=== PATIENT | female | born 1955 | race Hispanic/Latino ===

== ENCOUNTER 2020-02-17 10:28 | Inpatient (IN) | payer OTHER ==
[~2020-02-17] VITALS: Ht 157.5 cm; Wt 72.6 kg
[~2020-02-17 10:28] MED LIST: ASPIRIN325 MG PO; ECOTRIN81 MG PO; LOPRESSOR25 MG PO; MELOXICAM7.5 MG PO; PEPCID20 MG PO; SIMVASTATIN20 MG PO
[2020-02-17] MEDS ORDERED: SODIUM CHLORIDE 0.9% 1000ML 1,000 ML IV STA (10:50)
[2020-02-17] MEDS ORDERED: ONDANSETRON HCL INJ 2MG/ML 2ML 2 MG/ML VIAL IV STA (11:59)
[2020-02-17 12:09] LABS: BASOPHILS # (AUTO) 0.1 (0.0-0.1); BASOPHILS % 0.5 % (0.0-1.0); EOSINOPHILS # (AUTO) 0.1 (0.0-0.4); EOSINOPHILS % 0.6 % (0.0-6.0); HEMATOCRIT 42.8 % (34.2-44.1); HEMOGLOBIN 13.9 g/dL (12.0-16.0); LYMPHOCYTES # (AUTO) 2.4 (1.0-3.2); LYMPHOCYTES % 22.4 % (18.0-39.1); MEAN CORPUSCULAR HEMOGLOBIN 29.4 pg (28-32); MEAN CORPUSCULAR HGB CONC 32.5 g/dL (31-35); MEAN CORPUSCULAR VOLUME 90.5 fL (81-99); MONOCYTES # (AUTO) 0.6 (0.2-0.8); MONOCYTES % 5.6 % (4.4-11.3); NEUTROPHILS # (AUTO) 7.7 (2.1-6.9); NEUTROPHILS % 70.3 % (38.7-80.0); PLATELET COUNT 312 x10e3/uL (140-360); RED BLOOD COUNT 4.73 x10e6/uL (3.6-5.1)
[2020-02-17 12:22] LABS: INR 0.93; PARTIAL THROMBOPLASTIN TIME 25.8 seconds (23.8-35.5); PROTHROMBIN TIME 12.9 seconds (11.9-14.5)
[2020-02-17 12:30] LABS: ALANINE AMINOTRANSFERASE 28 IU/L (0-55); ALBUMIN 4.6 g/dL (3.5-5.0); ALBUMIN/GLOBULIN RATIO 1.4 (0.8-2.0); ALKALINE PHOSPHATASE 80 IU/L (40-150); ANION GAP 14.4 mmol/L (8-16); BLOOD UREA NITROGEN 14 mg/dL (7-26); BUN/CREATININE RATIO 17 (6-25); CALCIUM 9.1 mg/dL (8.4-10.2); CARBON DIOXIDE 26 mmol/L (22-29); CHLORIDE 105 mmol/L (98-107); CREATINE KINASE 262 IU/L (29-168); CREATININE, SERUM 0.81 mg/dL (0.57-1.11); EST GLOMERULAR FILTRATION RATE > 60 ML/MIN (60-); GLUCOSE 100 mg/dL (74-118); POTASSIUM 4.4 mmol/L (3.5-5.1); SODIUM 141 mmol/L (136-145)
[2020-02-17 17:00] VITALS: BP 140/85
[2020-02-17 18:01] VITALS: BP 131/79
[2020-02-17] MEDS ORDERED: GABAPENTIN300 MG PO (18:33)
[2020-02-17] MEDS ORDERED: REQUIP3 MG PO (18:33)
[2020-02-17] MEDS ORDERED: NAPROXEN250 MG PO (18:33)
[2020-02-17] MEDS ORDERED: VITAMIN D250 MC1 PO (18:33)
[2020-02-17] MEDS ORDERED: HYDROXYCHLOROQ200 MG (18:33)
[2020-02-17] MEDS ORDERED: PANTOPRAZOLE SO40 MG PO (18:33)
[2020-02-17] MEDS ORDERED: CYMBALTA30 MG PO (18:33)
[2020-02-17 18:53] LABS: CREATINE KINASE MB 9.8 ng/mL (0-5.0)
[2020-02-17 20:37] VITALS: BP 125/60
[2020-02-17 21:00] VITALS: BP 125/60
[2020-02-17] MEDS: GABAPENTIN 300 MG CAP PO SCH (21:01)
[2020-02-17] MEDS: ROPINIROLE HCL 2 MG TAB PO SCH (21:01)
[2020-02-17] MEDS: MORPHINE SULFATE INJ 4 MG/ML INJ 1ML IV PRN (21:02)
[2020-02-17] MEDS: ONDANSETRON HCL INJ 2MG/ML 2ML 2 MG/ML VIAL IV PRN (21:02)
[2020-02-18] VITALS (7 sets, daily range): BP systolic 99–124; BP diastolic 58–79
[2020-02-18] MEDS: MORPHINE SULFATE INJ 4 MG/ML INJ 1ML IV PRN ×5 (01:30→21:48)
[2020-02-18] MEDS: ONDANSETRON HCL INJ 2MG/ML 2ML 2 MG/ML VIAL IV PRN ×3 (01:30→13:57)
[2020-02-18 07:07] LABS: BASOPHILS # (AUTO) 0.1 (0.0-0.1); BASOPHILS % 0.4 % (0.0-1.0); EOSINOPHILS # (AUTO) 0.1 (0.0-0.4); EOSINOPHILS % 0.9 % (0.0-6.0); HEMATOCRIT 37.9 % (34.2-44.1); HEMOGLOBIN 12.4 g/dL (12.0-16.0); LYMPHOCYTES # (AUTO) 3.1 (1.0-3.2); LYMPHOCYTES % 23.8 % (18.0-39.1); MEAN CORPUSCULAR HEMOGLOBIN 30.8 pg (28-32); MEAN CORPUSCULAR HGB CONC 32.7 g/dL (31-35); MEAN CORPUSCULAR VOLUME 94.3 fL (81-99); MONOCYTES % 7.6 % (4.4-11.3); NEUTROPHILS # (AUTO) 8.6 (2.1-6.9); PLATELET COUNT 254 x10e3/uL (140-360); RED BLOOD COUNT 4.02 x10e6/uL (3.6-5.1); RED CELL DISTRIBUTION WIDTH 13.3 % (11.7-14.4)
[2020-02-18 07:35] LABS: ALANINE AMINOTRANSFERASE 63 IU/L (0-55); ALBUMIN 4.2 g/dL (3.5-5.0); ALBUMIN/GLOBULIN RATIO 1.4 (0.8-2.0); ALKALINE PHOSPHATASE 93 IU/L (40-150); ANION GAP 14.8 mmol/L (8-16); BLOOD UREA NITROGEN 15 mg/dL (7-26); BUN/CREATININE RATIO 19 (6-25); CALCIUM 8.7 mg/dL (8.4-10.2); CARBON DIOXIDE 25 mmol/L (22-29); CHLORIDE 103 mmol/L (98-107); CHOL/HDL RATIO 2.3 (3.0-3.6); CHOLESTEROL 179 MD/DL (0-199); CREATINE KINASE 333 IU/L (29-168); CREATININE, SERUM 0.79 mg/dL (0.57-1.11); EST GLOMERULAR FILTRATION RATE > 60 ML/MIN (60-); GLUCOSE 165 mg/dL (74-118); HDL CHOLESTEROL 77 MG/DL (40-60); LDL CHOLESTEROL 82 MG/DL (60-130); POTASSIUM 3.8 mmol/L (3.5-5.1); SODIUM 139 mmol/L (136-145); TRIGLYCERIDES 99 MG/DL (0-149)
[2020-02-18 07:43] LABS: THYROID STIMULATING HORMONE 1.759 uIU/mL (0.350-4.940)
[2020-02-18] MEDS: GABAPENTIN 300 MG CAP PO SCH ×3 (09:00→21:31)
[2020-02-18] MEDS: PANTOPRAZOLE SOD 40 MG TABEC PO SCH ×2 (09:00→17:00)
[2020-02-18] MEDS: DULOXETINE HCL 30 MG DELAYED RELEASE PO SCH (09:00)
[2020-02-18] MEDS: HYDROXYCHLOROQUINE SULFATE 200 MG TAB PO SCH (11:30)
[2020-02-18] MEDS: SODIUM CHLORIDE 0.9% 1000ML 1,000 ML IV SCH ×2 (12:06→21:31)
[2020-02-18] MEDS ORDERED: PROMETHAZINE 12.5MG/ NACL 0.9% 12.5 MG/50 ML BAG IV PRN (14:15)
[2020-02-18] MEDS ORDERED: ONDANSETRON HCL INJ 2MG/ML 2ML 2 MG/ML VIAL IV PRN (14:30)
[2020-02-18] MEDS: METOCLOPRAMIDE HCL 10 MG/2ML VIAL IV SCH ×3 (15:18→23:13)
[2020-02-18] MEDS: ROPINIROLE HCL 2 MG TAB PO SCH (21:31)
[2020-02-19] VITALS (7 sets, daily range): BP systolic 100–135; BP diastolic 60–98
[2020-02-19] MEDS: PANTOPRAZOLE 40 MG 10ML VIAL IV SCH ×2 (03:23→15:29)
[2020-02-19] MEDS: METOCLOPRAMIDE HCL 10 MG/2ML VIAL IV SCH ×4 (06:15→23:44)
[2020-02-19] MEDS: DULOXETINE HCL 30 MG DELAYED RELEASE PO SCH (09:17)
[2020-02-19] MEDS: GABAPENTIN 300 MG CAP PO SCH ×3 (09:18→20:52)
[2020-02-19] MEDS: SODIUM CHLORIDE 0.9% 1000ML 1,000 ML IV SCH ×2 (09:18→20:52)
[2020-02-19] MEDS: HYDROXYCHLOROQUINE SULFATE 200 MG TAB PO SCH (12:15)
[2020-02-19] MEDS: ROPINIROLE HCL 2 MG TAB PO SCH (20:52)
[2020-02-20 00:29] VITALS: BP 114/56
[2020-02-20] MEDS: PANTOPRAZOLE 40 MG 10ML VIAL IV SCH ×2 (02:59→15:10)
[2020-02-20] MEDS: SODIUM CHLORIDE 0.9% 1000ML 1,000 ML IV SCH ×2 (02:59→12:30)
[2020-02-20 04:15] VITALS: BP 110/58
[2020-02-20] MEDS: METOCLOPRAMIDE HCL 10 MG/2ML VIAL IV SCH ×3 (05:52→17:25)
[2020-02-20 08:34] VITALS: BP 133/64
[2020-02-20] MEDS: GABAPENTIN 300 MG CAP PO SCH ×2 (09:00→13:57)
[2020-02-20 12:00] VITALS: BP 121/69
[2020-02-20] MEDS ORDERED: LIDOCAINE HCL 2% LOCAL INJ 5 ML SDV VIAL INJ ONE (12:04)
[2020-02-20] MEDS ORDERED: PROPOFOL IV EMULSION 10 MG/ML 20 ML VIAL ONE (12:04)
[2020-02-20] MEDS ORDERED: FENTANYL CITRATE/PF 100MCG/2 ML INJ ONE (12:34)
[2020-02-20] MEDS ORDERED: MIDAZOLAM HCL 2 MG/2 ML VIAL ONE (12:34)
[2020-02-20] MEDS: DULOXETINE HCL 30 MG DELAYED RELEASE PO SCH (13:57)
[2020-02-20] MEDS: HYDROXYCHLOROQUINE SULFATE 200 MG TAB PO SCH (13:57)
[2020-02-20] MEDS ORDERED: VANCOMYCIN 1GM/NS 250 ML 250 ML ONE (15:25)
[2020-02-20 16:00] VITALS: BP 121/90
[2020-02-20] MEDS ORDERED: LIDOCAINE 1% W/EPINEPHRINE 20 ML VIAL ONE (16:37)
[2020-02-20 20:00] VITALS: BP 147/79
== END 2020-02-20 21:33 | disposition home or self-care (01) | DRG 262 ==
LOC: ER 11:25 → ERHOLD 13:10 → MED/SURG2 17:05 → OBSVTOIN 02-20 09:37
PROVIDERS: ADMIT Internal Medicine; ATTEND Internal Medicine
PROC: 0JH632Z Insertion of Monitoring Device into Chest Subcutaneous Tissue and Fascia, Percutaneous Approach (ICD-10-PCS; 2020-02-20)
PROC: 0D758ZZ Dilation of Esophagus, Via Natural or Artificial Opening Endoscopic (ICD-10-PCS; principal; 2020-02-20 12:28)
PROC: 0DB68ZX Excision of Stomach, Via Natural or Artificial Opening Endoscopic, Diagnostic (ICD-10-PCS; 2020-02-20 12:28)
DX: R55 Syncope and collapse (principal); W18.39XA Other fall on same level, initial encounter; Y93.01 Activity, walking, marching and hiking; Y92.89 Other specified places as the place of occurrence of the external cause; M35.00 Sjogren syndrome, unspecified; G25.81 Restless legs syndrome; M32.9 Systemic lupus erythematosus, unspecified; Z90.49 Acquired absence of other specified parts of digestive tract; Z88.0 Allergy status to penicillin; K20.9 Esophagitis, unspecified; K44.9 Diaphragmatic hernia without obstruction or gangrene; K29.70 Gastritis, unspecified, without bleeding; K31.7 Polyp of stomach and duodenum; M79.7 Fibromyalgia; Z11.59 Encounter for screening for other viral diseases
CPT/HCPCS: 33285; 36415; 43239; 43450; 70450; 70551; 71045; 72125; 80053; 80061; 82550; 82553; 83880; 84443; 84484; 85025; 85610; 85730; 88305; 88312; 93005; 93306; 93880; 96361; 99284; C1764; G0378; J2001; J2250; J2270; J2405; J2765; J3010; J3370; J7030; U0002

== ENCOUNTER 2021-02-17 20:31 | Inpatient (IN) | payer OTHER ==
[~2021-02-17] VITALS: Ht 160 cm; Wt 69.4 kg
[~2021-02-17 20:31] MED LIST changes: +CYMBALTA30 MG PO; +GABAPENTIN300 MG PO; +HYDROXYCHLOROQ200 MG; +NAPROXEN250 MG PO; +PANTOPRAZOLE SO40 MG PO; +REQUIP3 MG PO; +VITAMIN D250 MC1 PO
[2021-02-17 20:49] LABS: BASOPHILS % 0.4 % (0.0-1.0); EOSINOPHILS # (AUTO) 0.3 (0.0-0.4); EOSINOPHILS % 2.5 % (0.0-6.0); HEMATOCRIT 36.3 % (34.2-44.1); HEMOGLOBIN 11.6 g/dL (12.0-16.0); LYMPHOCYTES # (AUTO) 2.6 (1.0-3.2); LYMPHOCYTES % 26.4 % (18.0-39.1); MEAN CORPUSCULAR HEMOGLOBIN 28.9 pg (28-32); MEAN CORPUSCULAR VOLUME 90.5 fL (81-99); MONOCYTES # (AUTO) 0.7 (0.2-0.8); MONOCYTES % 6.9 % (4.4-11.3); NEUTROPHILS # (AUTO) 6.3 (2.1-6.9); NEUTROPHILS % 63.5 % (38.7-80.0); PLATELET COUNT 329 x10e3/uL (140-360); RED BLOOD COUNT 4.01 x10e6/uL (3.6-5.1)
[2021-02-17 21:12] LABS: ALBUMIN 4.2 g/dL (3.5-5.0); ALBUMIN/GLOBULIN RATIO 1.3 (0.8-2.0); ANION GAP 14.5 mmol/L (8-16); CALCIUM 8.9 mg/dL (8.4-10.2); CREATININE, SERUM 0.77 mg/dL (0.57-1.11); POTASSIUM 3.5 mmol/L (3.5-5.1)
[2021-02-17 23:04] LABS: CREATINE KINASE 1066 IU/L (29-168)
[2021-02-17] MEDS ORDERED: SODIUM CHLORIDE FLUSH 10 ML SYR INJ PRN (23:45)
[2021-02-18] VITALS (7 sets, daily range): BP systolic 101–168; BP diastolic 57–86
[2021-02-18] MEDS: ONDANSETRON HCL INJ 2MG/ML 2ML 2 MG/ML VIAL IV PRN ×2 (00:08→04:51)
[2021-02-18] MEDS ORDERED: CYMBALTA30 MG PO (01:41)
[2021-02-18] MEDS ORDERED: ATORVASTATIN CA20 MG PO (01:41)
[2021-02-18] MEDS ORDERED: NEURONTIN100 MG PO (01:43)
[2021-02-18] MEDS ORDERED: FAMOTIDINE20 MG PO (01:43)
[2021-02-18] MEDS ORDERED: PLAQUENIL200 MG PO (01:44)
[2021-02-18] MEDS ORDERED: SALAGEN5 MG PO (01:45)
[2021-02-18] MEDS ORDERED: LAMISIL125 ML PO (01:46)
[2021-02-18] MEDS: SODIUM CHLORIDE 0.9% 1000ML 1,000 ML IV SCH ×3 (01:52→21:00)
[2021-02-18] MEDS: MORPHINE SULFATE INJ 2 MG/ML SYR IV PRN ×3 (04:51→21:00)
[2021-02-18] MEDS: ASPIRIN 81 MG ENTERIC COATED PO SCH (08:00)
[2021-02-18 09:08] LABS: CREATINE KINASE MB 22.4 ng/mL (0-5.0)
[2021-02-18 09:23] LABS: CHOL/HDL RATIO 2.3 (3.0-3.6)
[2021-02-18] MEDS ORDERED: ERGOCALCIFEROL 5000 UNIT PO SCH (11:45)
[2021-02-18] MEDS: HYDROXYCHLOROQUINE SULFATE 200 MG TAB PO SCH (12:25)
[2021-02-18] MEDS: DULOXETINE HCL 30 MG DELAYED RELEASE PO SCH ×2 (12:25→21:00)
[2021-02-18] MEDS: GABAPENTIN 100 MG CAP PO SCH ×2 (14:03→21:00)
[2021-02-18] MEDS ORDERED: GABAPENTIN 100 MG CAP PO SCH (15:00)
[2021-02-18] MEDS ORDERED: DULOXETINE HCL 30 MG DELAYED RELEASE PO SCH (17:00)
[2021-02-18] MEDS ORDERED: ATORVASTATIN 20 MG TAB PO SCH (21:00)
[2021-02-18] MEDS ORDERED: FAMOTIDINE 20 MG TAB PO SCH (21:00)
[2021-02-18] MEDS: ROPINIROLE HCL 2 MG TAB PO SCH (21:00)
[2021-02-19] VITALS: BP 124/59
[2021-02-19 04:00] VITALS: BP 144/73
[2021-02-19] MEDS: SODIUM CHLORIDE 0.9% 1000ML 1,000 ML IV SCH ×2 (06:11→13:33)
[2021-02-19 07:23] VITALS: BP 102/78
[2021-02-19 07:41] VITALS: BP 102/78
[2021-02-19] MEDS: DULOXETINE HCL 30 MG DELAYED RELEASE PO SCH ×2 (08:18→21:38)
[2021-02-19] MEDS: GABAPENTIN 100 MG CAP PO SCH ×3 (08:18→21:38)
[2021-02-19] MEDS: ASPIRIN 81 MG ENTERIC COATED PO SCH (08:18)
[2021-02-19] MEDS: HYDROXYCHLOROQUINE SULFATE 200 MG TAB PO SCH (08:18)
[2021-02-19] MEDS: PILOCARPINE HCL 5 MG PO SCH (08:53)
[2021-02-19] MEDS ORDERED: REGADENOSON 0.4 MG/5 ML SYR IV ONE (10:23)
[2021-02-19] MEDS: MORPHINE SULFATE INJ 2 MG/ML SYR IV PRN (12:11)
[2021-02-19] MEDS: ONDANSETRON HCL INJ 2MG/ML 2ML 2 MG/ML VIAL IV PRN (12:17)
[2021-02-19 20:00] VITALS: BP 106/60
[2021-02-19 20:15] VITALS: BP 106/60
[2021-02-19] MEDS: ROPINIROLE HCL 2 MG TAB PO SCH (21:38)
[2021-02-20] VITALS: BP 105/55
[2021-02-20] MEDS: MORPHINE SULFATE INJ 2 MG/ML SYR IV PRN (00:20)
[2021-02-20] MEDS: ONDANSETRON HCL INJ 2MG/ML 2ML 2 MG/ML VIAL IV PRN (00:20)
[2021-02-20 04:00] VITALS: BP 131/70
[2021-02-20 05:37] LABS: BASOPHILS % 0.5 % (0.0-1.0); EOSINOPHILS # (AUTO) 0.2 (0.0-0.4); EOSINOPHILS % 2.8 % (0.0-6.0); HEMATOCRIT 33.1 % (34.2-44.1); HEMOGLOBIN 10.3 g/dL (12.0-16.0); LYMPHOCYTES # (AUTO) 1.9 (1.0-3.2); LYMPHOCYTES % 25.3 % (18.0-39.1); MEAN CORPUSCULAR HEMOGLOBIN 28.7 pg (28-32); MEAN CORPUSCULAR HGB CONC 31.1 g/dL (31-35); MEAN CORPUSCULAR VOLUME 92.2 fL (81-99); MONOCYTES # (AUTO) 0.5 (0.2-0.8); MONOCYTES % 6.7 % (4.4-11.3); NEUTROPHILS # (AUTO) 4.9 (2.1-6.9); NEUTROPHILS % 64.3 % (38.7-80.0); PLATELET COUNT 245 x10e3/uL (140-360); RED BLOOD COUNT 3.59 x10e6/uL (3.6-5.1); RED CELL DISTRIBUTION WIDTH 14.1 % (11.7-14.4)
[2021-02-20 06:09] LABS: ALBUMIN/GLOBULIN RATIO 1.1 (0.8-2.0); ANION GAP 12.6 mmol/L (8-16); CALCIUM 8.3 mg/dL (8.4-10.2); CREATININE, SERUM 0.6 mg/dL (0.57-1.11); POTASSIUM 3.6 mmol/L (3.5-5.1)
[2021-02-20] MEDS: SODIUM CHLORIDE 0.9% 1000ML 1,000 ML IV SCH (06:30)
[2021-02-20 08:25] VITALS: BP 105/54
[2021-02-20 09:00] VITALS: BP 105/54
[2021-02-20] MEDS ORDERED: CHOLECALCIFEROL 1,000 UNIT TAB PO SCH (09:00)
[2021-02-20] MEDS: PILOCARPINE HCL 5 MG PO SCH (09:00)
[2021-02-20] MEDS: HYDROXYCHLOROQUINE SULFATE 200 MG TAB PO SCH (10:00)
[2021-02-20] MEDS: GABAPENTIN 100 MG CAP PO SCH (10:00)
[2021-02-20] MEDS: ASPIRIN 81 MG ENTERIC COATED PO SCH (10:00)
[2021-02-20] MEDS: DULOXETINE HCL 30 MG DELAYED RELEASE PO SCH (10:00)
[2021-02-20 11:49] VITALS: BP 144/68
== END 2021-02-20 15:03 | disposition home or self-care (01) | DRG 392 ==
LOC: ER 20:40 → ERHOLD 23:45 → MED/SURG3 02-18 00:30 → OBSVTOIN 02-19 09:13
PROVIDERS: ADMIT Internal Medicine; ATTEND Internal Medicine
PROC: 0D748ZZ Dilation of Esophagogastric Junction, Via Natural or Artificial Opening Endoscopic (ICD-10-PCS; 2021-02-19)
PROC: 0DB68ZX Excision of Stomach, Via Natural or Artificial Opening Endoscopic, Diagnostic (ICD-10-PCS; principal; 2021-02-19 14:30)
DX: K22.2 Esophageal obstruction (principal); M62.82 Rhabdomyolysis; R07.9 Chest pain, unspecified; M32.9 Systemic lupus erythematosus, unspecified; M35.00 Sjogren syndrome, unspecified; G25.81 Restless legs syndrome; K21.9 Gastro-esophageal reflux disease without esophagitis; M79.7 Fibromyalgia; K20.90 Esophagitis, unspecified without bleeding; K44.9 Diaphragmatic hernia without obstruction or gangrene; K29.70 Gastritis, unspecified, without bleeding; K31.7 Polyp of stomach and duodenum; Z88.0 Allergy status to penicillin; Z20.822 Contact with and (suspected) exposure to COVID-19; E66.9 Obesity, unspecified; Z68.27 Body mass index [BMI] 27.0-27.9, adult
CPT/HCPCS: 36415; 43450; 71045; 74018; 78452; 80053; 80061; 82550; 82553; 83880; 84443; 84484; 85025; 85379; 88305; 88312; 93005; 93017; 93306; 93880; 96361; 99284; A9502; G0378; J2270; J2405; J7030; U0002

== ENCOUNTER 2024-10-03 12:27 | Emergency (ER) | payer MEDICARE, OTHER ==
[~2024-10-03] VITALS: Ht 160 cm; Wt 62.6 kg
[~2024-10-03 12:27] MED LIST changes: +ATORVASTATIN CA20 MG PO; +FAMOTIDINE20 MG PO; +LAMISIL125 ML PO; +NEURONTIN100 MG PO; +PLAQUENIL200 MG PO; +SALAGEN5 MG PO
[2024-10-03 12:57] VITALS: TEMP 98.7
[2024-10-03] MEDS: SODIUM CHLORIDE 0.9% 1000ML 1,000 ML IV SCH (13:33)
[2024-10-03] MEDS: ONDANSETRON HCL INJ 2MG/ML 2ML 2 MG/ML VIAL IV STA (13:33)
[2024-10-03 13:34] VITALS: PULSE 68; RESP 25
[2024-10-03] MEDS: ALBUTEROL/IPRATROPIUM 3 ML NEB NEB ONE (13:34)
[2024-10-03] MEDS ORDERED: IOPAMIDOL 370 MG/ML 100 ML INFUS..BTL INJ ONE (13:40)
[2024-10-03] MEDS: METHYLPREDNISOLONE SOD SUCC 125 MG/2ML VIAL IV ONE (14:23)
[2024-10-03] MEDS ORDERED: VENTOLIN HFA18 GM INH (15:36)
[2024-10-03] MEDS ORDERED: BREYNA 160-4.10.3 GM INH (15:40)
[2024-10-03] MEDS ORDERED: DOXYCYCLINE HY100 MG PO (15:42)
[2024-10-03] MEDS ORDERED: PREDNISONE20 MG PO (15:44)
[2024-10-03] MEDS ORDERED: MUCINEX DM ER1 EACH PO (15:45)
[2024-10-03 16:36] VITALS: PULSE 88; RESP 18; O2SAT 96
[2024-10-04] MEDS ORDERED: VENTOLIN HFA18 GM INH (10:06)
[2024-10-04] MEDS ORDERED: BACLOFEN10 MG PO (10:06)
[2024-10-04] MEDS ORDERED: ALENDRONATE SOD70 MG (10:06)
[2024-10-04] MEDS ORDERED: VITAMIN D250 MCG PO (10:06)
[2024-10-04] MEDS ORDERED: CYMBALTA30 MG (10:06)
[2024-10-04] MEDS ORDERED: DICLOFENAC SOD100 GM (10:06)
[2024-10-04] MEDS ORDERED: BENZONATATE200 MG PO (10:06)
[2024-10-04] MEDS ORDERED: ONDANSETRON ODT4 MG PO (10:15)
[2024-10-04] MEDS ORDERED: NAPROXEN500 MG (10:15)
[2024-10-04] MEDS ORDERED: ULTRAM 50MG50 MG PO (10:15)
[2024-10-04] MEDS ORDERED: MONTELUKAST SOD10 MG PO (10:15)
[2024-10-04] MEDS ORDERED: SALONPAS 3.1%-1 EAC1 (10:15)
[2024-10-04] MEDS ORDERED: GUAIFENESIN600 M1 PO (10:15)
[2024-10-04] MEDS ORDERED: OMEPRAZOLE40 MG PO (10:15)
== END 2024-10-03 16:36 | disposition home or self-care (01) ==
LOC: FSED 12:31
DX: R05.9 Cough, unspecified (principal); J20.9 Acute bronchitis, unspecified; J06.9 Acute upper respiratory infection, unspecified; L93.0 Discoid lupus erythematosus; M35.00 Sjogren syndrome, unspecified; M79.7 Fibromyalgia; R94.31 Abnormal electrocardiogram [ECG] [EKG]
CPT/HCPCS: 71260; 80053; 81003; 84484; 85025; 85379; 93005; 96374; 96375; 99284; J0696; J2405; J2919; J7030; Q9967